=== PATIENT | female | born 1960 | race Caucasian/White ===

== ENCOUNTER 2018-04-10 13:21 | Emergency (ER) | payer SELFPAY ==
[~2018-04-10] VITALS: Ht 165.1 cm; Wt 88.2 kg
[~2018-04-10 13:21] MED LIST: FLEXERIL10 MG PO; LEVOTHYROXINE50 MCG PO; NAPROSYN500 MG PO; NOHOMEMEDS; PERCOCET 5/31 TABLET PO; ZANTAC150 MG PO
[2018-04-10 13:57] LABS: HEMATOCRIT 40.8 % (36.0-46.0); HEMOGLOBIN 13.6 G/DL (11.9-15.5); MCH 30.7 PG (29.0-34.0); MCHC 33.3 G/DL (30.0-36.0); MCV 92.1 FL (83-99); PLATELET COUNT 254 K/uL (156-360); RBC DIS.WIDTH-CV 13.3 % (11.8-14.6); RBC DIS.WIDTH-SD 45.5 % (39-53); RED BLOOD COUNT 4.43 M/uL (3.80-5.20); WHITE BLOOD COUNT 9.4 K/uL (4.1-10.2)
[2018-04-10 14:07] LABS: CHLORIDE 106 mEq/L (99-109); POTASSIUM 3.9 mEq/L (3.7-5.4); SODIUM 139 mEq/L (136-147)
[2018-04-10 14:09] LABS: GLUCOSE 102 mg/dL (70-99)
[2018-04-10 14:12] LABS: CREATININE 0.8 mg/dL (0.6-1.3); GFR ESTIMATE (CALCULATED) > 59 mL/min/
[2018-04-10 14:13] LABS: UREA NITROGEN (BUN) 12 mg/dL (9-23)
[2018-04-10 15:24] LABS: CREATINE KINASE 104 IU/L (1-294)
[2018-04-10 15:42] LABS: MONOSPOT (MONONUCLEOSIS SEROL) NEGATIVE
[2018-04-10 16:07] LABS: APPEARANCE CLEAR ((CLEAR)); BILIRUBIN NEGATIVE; BLOOD SMALL; COLOR STRAW ((YELLOW)); GLUCOSE (STRIP) NEGATIVE; KETONES NEGATIVE; LEUKOCYTES NEGATIVE; NITRITE NEGATIVE; PROTEIN (STRIP) NEGATIVE; SPECIFIC GRAVITY 1.004 (1.000-1.030); UROBILINOGEN 0.2 MG/DL (0.2-1.0)
[2018-04-10 16:09] LABS: BACTERIA NONE SEEN /HPF; EPITHELIAL CELLS RARE /HPF; MUCUS NONE SEEN /LPF; RED BLOOD CELLS 0-5 /HPF (0-5); UCUL ADDED? NO; WHITE BLOOD CELLS 0-5 /HPF (0-5)
[2018-04-10 16:13] LABS: THYROTROPIN (TSH) 2.5 MIU/L (0.4-5.5)
[2018-04-10 17:23] VITALS: BP 113/70
== END 2018-04-10 17:24 | disposition home or self-care (01) ==
LOC: EME 13:21
PROVIDERS: Nurse Practitioner Family; Physician Assistant
DX: B34.9 Viral infection, unspecified (principal); R05 Cough; J02.9 Acute pharyngitis, unspecified; R50.9 Fever, unspecified; E03.9 Hypothyroidism, unspecified; Z91.14 Patient's other noncompliance with medication regimen; Z90.49 Acquired absence of other specified parts of digestive tract
CPT/HCPCS: 71046; 80048; 81003; 82550; 84443; 85027; 86308; 87651 90; 99281; 99284